=== PATIENT | female | born 1980 | race American Indian/Alaskan Native ===

== ENCOUNTER 2018-11-14 19:25 | Emergency (ER) | payer BC ==
[2018-11-14] MEDS ORDERED: TORADOL IV ONE (20:16)
[2018-11-14] MEDS ORDERED: ZOFRAN IV ONE (20:16)
[2018-11-14] MEDS ORDERED: DILAUDID IV ONE (20:16)
--- NOTE | 2018-11-14 20:32 | Emergency Department Report ---
ED Upper Extremity Inj HPI - General Chief Complaint: Extremity Injury, Upper Stated Complaint: FALL/LEFT WRIST INJURY Time Seen by Provider: 11/14/18 20:06 Source: patient Mode of arrival: Ambulatory Limitations: No Limitations - History of Present Illness Initial Comments: 38-year-old female presents to the Hospital complaining of injury to left wrist. She is right-hand dominant. She was rollerskating and fell on the left wrist. She complains of 10/10 pain, swelling, and deformity. Pain is constant and worse with movement and palpation. No other injuries reported - Related Data Previous Rx's Medication Instructions Recorded Last Taken Type HYDROcodone/APAP 5-325 [Rand 1 each PO Q6HR PRN #15 tablet 11/14/18 Unknown Rx 5/325] Ibuprofen [Motrin] 800 mg PO Q8HR PRN #30 tablet 11/14/18 Unknown Rx Allergies Allergy/AdvReac Type Severity Reaction Status Date / Time No Known Allergies Allergy Verified 11/14/18 19:34 ED Review of Systems ROS: Stated complaint: FALL/LEFT WRIST INJURY Other details as noted in HPI Comment: All other systems reviewed and negative ED Past Medical Hx - Social History Smoking Status: Never Smoker - Medications Home Medications: Home Medications Medication Instructions Recorded Confirmed Last Taken Type HYDROcodone/APAP 5-325 [Rand 1 each PO Q6HR PRN #15 tablet 11/14/18 Unknown Rx 5/325] Ibuprofen [Motrin] 800 mg PO Q8HR PRN #30 tablet 11/14/18 Unknown Rx ED Physical Exam - General Limitations: No Limitations - Other Other exam information: General: No limitations, patient is alert in no acute distress Head exam: Atraumatic, normocephalic Eyes exam: Normal appearance ENT: Moist mucous membrane Neck exam: Normal inspection, full range of motion, no meningismus nontender Respiratory exam: Clear to auscultation bilateral, no wheezes, rales, crackles Cardiovascular: Normal rate and rhythm, normal heart sounds Abdomen: Soft, nondistended, and nontender, with normal bowel sounds, no rebound, or guarding Extremity: Left wrist deformity, generalized tenderness to wrist, 2+ radial and ulnar pulses. Sensation intact. Less than 2 second cap refill Back: Normal Inspection, full range of motion, no tenderness Neurologic: Alert, oriented x3, cranial nerves intact, no motor or sensory deficit Psychiatric: normal affect, normal mood Skin: Warm, dry, intact ED Course Vital Signs 11/14/18 11/14/18 20:07 20:33 Temperature 98.2 F Pulse Rate 99 H Respiratory 18 19 Rate Blood Pressure 131/87 [Left] O2 Sat by Pulse 100 100 Oximetry - Orthopedic Splinting/Casting Injury #1 Side: left Upper Extremity Injury Location: wrist Upper Extremity Immobilizer: sugartong splint Additional Comments: sling ED Medical Decision Making - Radiology Data Radiology results: report reviewed Left wrist-3 views INDICATION: MAIN: left wrist pain/deformity after fall from skating. COMPARISON: None. IMPRESSION: Comminuted intra-articular fracture of the distal radius with mild dorsal angulation of the distal fracture component and circumferential soft tissue swelling about the wrist. No significant DJD. - Differential Diagnosis x-ray, contusion, sprain Critical Care Time: No Critical care attestation.: If time is entered above; I have spent that time in minutes in the direct care of this critically ill patient, excluding procedure time. ED Disposition Clinical Impression: Left radial fracture Qualifiers: Encounter type: initial encounter Radius location: distal Fracture type: closed Disposition: DC-01 TO HOME OR SELFCARE Is pt being admited?: No Does the pt Need Aspirin: No Condition: Stable Instructions: Wrist Fracture in Adults (ED) Additional Instructions: Take the medication as prescribed. Follow up with your doctor or the clinic/doctor provided. Follow with either orthopedic doctor/provided or the orthopedic doctor/group of your choice. Return if symptoms worsen as indicated by your discharge instructions Prescriptions: Ibuprofen [Motrin] 800 mg PO Q8HR PRN #30 tablet PRN Reason: Pain, Moderate (4-6) HYDROcodone/APAP 5-325 [Rand 5/325] 1 each PO Q6HR PRN #15 tablet PRN Reason: Pain Referrals: LAZARO CASTANON MD [Staff Physician] - 3-5 Days [facility] [Provider Group] - 3-5 Days Time of Disposition: 21:59
--- NOTE | 2018-11-14 20:47 | XRay Report ---
Left wrist-3 views INDICATION: MAIN: left wrist pain/deformity after fall from skating. COMPARISON: None. IMPRESSION: Comminuted intra-articular fracture of the distal radius with mild dorsal angulation of the distal fracture component and circumferential soft tissue swelling about the wrist. No significa nt DJD. Signer Name: Shon Diehl MD Signed: 11/14/2018 8:43 PM Workstation Name: [id number]
[2018-11-14 22:26] VITALS: BP 133/86
== END 2018-11-14 22:23 | disposition home or self-care (01) ==
LOC: ED 19:25
DX: S52.502A Unspecified fracture of the lower end of left radius, initial encounter for closed fracture (principal); V00.121A Fall from non-in-line roller-skates, initial encounter; Y93.89 Activity, other specified; Y92.89 Other specified places as the place of occurrence of the external cause; Y99.8 Other external cause status
CPT/HCPCS: 29125; 73110; 96374; 96375; 99283; J1170; J1885; J2405